=== PATIENT | female | born 1950 | race Caucasian/White ===

== ENCOUNTER 2016-08-13 09:57 | Outpatient (CLI) | payer OTHER | END 2016-08-13 09:58 | disposition home or self-care (01) | DX: Z12.31 Encounter for screening mammogram for malignant neoplasm of breast (principal) ==

== ENCOUNTER 2016-10-30 07:28 | Outpatient (CLI) | payer OTHER ==
[2016-10-30 08:03] LABS: BASOPHILS # (AUTO) 0.1 10^3/uL (0.0-0.1); BASOPHILS % (AUTO) 1.4 %; EOSINOPHILS # (AUTO) 0.2 10^3/uL (0.0-0.7); EOSINOPHILS % (AUTO) 3.8 %; HCT - HEMATOCRIT 38.6 % (37.0-47.0); LYMPHOCYTES # (AUTO) 1.9 10^3/uL (1.5-3.5); LYMPHOCYTES % (AUTO) 34.1 %; MEAN CORPUSCULAR HEMOGLOBIN 28.4 pg (27.0-31.0); MEAN CORPUSCULAR HGB CONC 33.6 g/dL (32.0-36.0); MEAN CORPUSCULAR VOLUME 84.7 fL (81.0-99.0); MEAN PLATELET VOLUME 7.2 fL (7.9-10.8); MONOCYTES # (AUTO) 0.4 10^3/uL (0.0-1.0); MONOCYTES % (AUTO) 7.4 %; NEUTROPHILS # (AUTO) 2.9 10^3/uL (1.5-6.6); NEUTROPHILS % (AUTO) 53.3 %; RED BLOOD COUNT 4.55 10^6/uL (4.20-5.40); RED CELL DISTRIBUTION WIDTH 12.8 % (12.0-15.0); UNCORRECTED WHITE BLOOD COUNT 5.5 x10^3/uL; WHITE BLOOD COUNT 5.5 x10^3/uL (4.8-10.8)
[2016-10-30 08:25] LABS: ALBUMIN/GLOBULIN RATIO 1.3 (1.0-2.2); BILIRUBIN,TOTAL 0.6 mg/dL (0.2-1.0); BUN - BLOOD UREA NITROGEN 12 mg/dL (6-20); CALCIUM 9.1 mg/dL (8.5-10.3); CARBON DIOXIDE - CO2 27 mmol/L (21-32); CHLORIDE 107 mmol/L (101-111); CHOLESTEROL 213 mg/dL; CREATININE 0.5 mg/dL (0.4-1.0); GFR - MDRD 124 (>89); GLUCOSE 98 mg/dL (70-100); HDL CHOLESTEROL 53 mg/dL; LDL/HDL RATIO 2.6 (<4.4); POTASSIUM 3.9 mmol/L (3.5-5.0); SODIUM 141 mmol/L (135-145); TOTAL PROTEIN 6.8 g/dL (6.7-8.2); TRIGLYCERIDES 119 mg/dL; VLDL CHOLESTEROL 24 mg/dL
== END 2016-10-30 07:29 | disposition home or self-care (01) ==
LOC: LAB 07:28
PROVIDERS: ATTEND Nurse Practitioner Family
DX: R52 Pain, unspecified (principal); R06.00 Dyspnea, unspecified; E78.5 Hyperlipidemia, unspecified; K21.9 Gastro-esophageal reflux disease without esophagitis
CPT/HCPCS: 36415; 80053; 80061; 82550; 85025

== ENCOUNTER 2017-01-29 13:35 | Outpatient (CLI) | payer OTHER, MEDICARE ==
--- NOTE | 2017-01-29 19:12 | CT Report ---
CT BRAIN WITHOUT CONTRAST: 01/29/2017 CLINICAL INDICATION: Trauma, headache. TECHNIQUE: Axial CT images of the brain were obtained without intravenous contrast. No previous CT is available for comparison. FINDINGS: The ventricles and sulci are normal in size, shape, and configuration. The basilar cister ns are patent. There is no evidence of hemorrhage, mass effect, or midline shift. The visualized or bital contents and paranasal sinuses are unremarkable. IMPRESSION: NORMAL CT OF THE BRAIN WITHOUT CONTRAST. In accordance with CT protocol optimization, one or more of the following dose reduction techniques w ere utilized for this exam: automated exposure control, adjustment of mA and/or KV based on patient size, or use of iterative reconstructive technique. JOB #: [id number] EXT JOB #:[id number]
--- NOTE | 2017-01-29 20:53 | CT Preliminary Report ---
Exam: CT Head W/O IMPRESSION: No acute intracranial abnormality. [facility] SITE ID: [id number]
== END 2017-01-29 13:36 | disposition home or self-care (01) ==
LOC: DI 13:35
PROVIDERS: ATTEND Physician Assistant
DX: R51 Headache (principal); H53.9 Unspecified visual disturbance; T14.90 Injury, unspecified
CPT/HCPCS: 70450

== ENCOUNTER 2017-02-17 11:17 | Outpatient (CLI) | payer OTHER ==
--- NOTE | 2017-02-17 13:04 | XRAY Report ---
COMPLETE CERVICAL SPINE: 02/17/2017 CLINICAL INDICATION: Neck pain. FINDINGS: AP, lateral, oblique, odontoid views of the cervical spine demonstrate normal height and a lignment of the vertebral bodies. Degenerative disc and facet disease is present, producing bilatera l osseous neural foraminal narrowing from C3-4 through C6-7, left worst than right. There is no evid ence of fracture or subluxation. The prevertebral soft tissues are unremarkable. IMPRESSION: MODERATE DEGENERATIVE CHANGES, WITH BILATERAL OSSEOUS NEURAL FORAMINAL ENCROACHMENT. JOB #: [id number] EXT JOB #:[id number]
== END 2017-02-17 11:18 | disposition home or self-care (01) ==
LOC: DI 11:17
PROVIDERS: ATTEND Nurse Practitioner Family
DX: M50.31 Other cervical disc degeneration, high cervical region (principal); M47.892 Other spondylosis, cervical region
CPT/HCPCS: 72050

== ENCOUNTER 2017-03-18 11:04 | Outpatient (CLI) | payer OTHER, MEDICARE | END 2017-03-18 11:05 | disposition home or self-care (01) | LOC: LAB 11:04 | PROVIDERS: ATTEND Physician Assistant | DX: E03.9 Hypothyroidism, unspecified (principal) | CPT/HCPCS: 36415; 84443 ==

== ENCOUNTER 2017-10-14 10:22 | Outpatient (CLI) | payer OTHER, MEDICARE ==
--- NOTE | 2017-10-15 15:14 | Mammography Report ---
DIGITAL SCREENING MAMMOGRAM: 10/14/2017 CLINICAL INDICATION: A 66-year-old for screening. COMPARISON: 07/2016, 07/2015, 06/2014, 06/2013, 06/2012, 06/2011, 05/2010. TECHNIQUE: Routine CC and MLO projections were obtained of the breasts. FINDINGS: Parenchymal tissue within the breasts is predominantly fatty replaced. There are no dominant masses, suspicious microcalcifications, or secondary signs of malignancy. In comparison to the previous studies, there are no significant changes. IMPRESSION: NO MAMMOGRAPHIC EVIDENCE OF MALIGNANCY. NO SIGNIFICANT INTERVAL CHANGES. RECOMMENDATION: Screening mammography is recommended annually. BIRADS CATEGORY 1 - NEGATIVE. STANDARD QUALIFYING STATEMENTS: 1. This examination was reviewed with the aid of Computed-Aided Detection (CAD). 2. A negative or benign imaging report should not delay biopsy if clinically suspicious findings are present. Consider surgical consultation if warranted. More than 5% of cancers are not identified by imaging. 3. Dense breasts may obscure an underlying neoplasm. TD: 10/15/2017 15:03
== END 2017-10-14 10:23 | disposition home or self-care (01) ==
LOC: DI 10:22
PROVIDERS: ATTEND Physician Assistant
DX: Z12.31 Encounter for screening mammogram for malignant neoplasm of breast (principal)
CPT/HCPCS: 77067

== ENCOUNTER 2017-12-02 08:17 | Outpatient (CLI) | payer MEDICARE, OTHER ==
[2017-12-02 08:52] LABS: ALBUMIN 3.7 g/dL (3.2-5.5); ALBUMIN/GLOBULIN RATIO 1.3 (1.0-2.2); BILIRUBIN,TOTAL 0.7 mg/dL (0.2-1.0); CALCIUM 8.8 mg/dL (8.5-10.3); CREATININE 0.5 mg/dL (0.4-1.0); TOTAL PROTEIN 6.6 g/dL (6.7-8.2)
== END 2017-12-02 08:18 | disposition home or self-care (01) ==
LOC: LAB 08:17
PROVIDERS: ATTEND Physician Assistant
DX: R03.0 Elevated blood-pressure reading, without diagnosis of hypertension (principal)
CPT/HCPCS: 36415; 80053

== ENCOUNTER 2018-01-12 11:31 | Outpatient (CLI) | payer MEDICARE, OTHER | END 2018-01-12 11:32 | disposition home or self-care (01) | LOC: SC 11:31 | PROVIDERS: ATTEND Internal Medicine Pulmonary Disease | DX: G47.30 Sleep apnea, unspecified (principal); G47.10 Hypersomnia, unspecified; R06.83 Snoring; G47.8 Other sleep disorders; E66.01 Morbid (severe) obesity due to excess calories; Z68.41 Body mass index [BMI] 40.0-44.9, adult | CPT/HCPCS: 99203; G0463; 99212 ==

== ENCOUNTER 2018-02-06 20:26 | Outpatient (CLI) | payer MEDICARE | END 2018-02-06 20:27 | disposition home or self-care (01) | LOC: SC 20:26 | PROVIDERS: ATTEND Internal Medicine Pulmonary Disease | DX: G47.33 Obstructive sleep apnea (adult) (pediatric) (principal); G47.61 Periodic limb movement disorder | CPT/HCPCS: 95810 ==

== ENCOUNTER 2018-02-23 13:03 | Outpatient (CLI) | payer MEDICARE | END 2018-02-23 13:04 | disposition home or self-care (01) | LOC: SC 13:03 | PROVIDERS: ATTEND Internal Medicine Pulmonary Disease | DX: G47.33 Obstructive sleep apnea (adult) (pediatric) (principal) | CPT/HCPCS: 99213; G0463; 99212 ==

== ENCOUNTER 2018-02-25 08:01 | Outpatient (CLI) | payer MEDICARE ==
[2018-02-25 08:26] LABS: BASOPHILS % (AUTO) 0.7 %; EOSINOPHILS # (AUTO) 0.1 10^3/uL (0.0-0.7); EOSINOPHILS % (AUTO) 2.6 %; HGB - HEMOGLOBIN 12.9 g/dL (12.0-16.0); LYMPHOCYTES # (AUTO) 1.9 10^3/uL (1.5-3.5); LYMPHOCYTES % (AUTO) 33.4 %; MEAN CORPUSCULAR HEMOGLOBIN 29.3 pg (27.0-31.0); MEAN CORPUSCULAR HGB CONC 33.8 g/dL (32.0-36.0); MEAN CORPUSCULAR VOLUME 86.6 fL (81.0-99.0); MONOCYTES # (AUTO) 0.4 10^3/uL (0.0-1.0); MONOCYTES % (AUTO) 6.7 %; NEUTROPHILS # (AUTO) 3.2 10^3/uL (1.5-6.6); NEUTROPHILS % (AUTO) 56.6 %; PLT - PLATELET COUNT 350 10^3/uL (130-450); RED CELL DISTRIBUTION WIDTH 12.6 % (12.0-15.0); WHITE BLOOD COUNT 5.7 x10^3/uL (4.8-10.8)
[2018-02-25 08:39] LABS: CALCIUM 8.6 mg/dL (8.5-10.3); CREATININE 0.5 mg/dL (0.4-1.0)
== END 2018-02-25 08:02 | disposition home or self-care (01) ==
LOC: LAB 08:01
PROVIDERS: ATTEND Orthopaedic Surgery
DX: Z01.812 Encounter for preprocedural laboratory examination (principal); Z01.818 Encounter for other preprocedural examination
CPT/HCPCS: 36415; 80048; 85025

== ENCOUNTER → 2018-02-26 | Outpatient (CLI) | payer MEDICARE | LOC: RT 08:30 | PROVIDERS: ATTEND Internal Medicine Cardiovascular Disease | DX: Z01.810 Encounter for preprocedural cardiovascular examination (principal) | CPT/HCPCS: 93005 ==

== ENCOUNTER 2018-04-06 10:57 | Outpatient (CLI) | payer MEDICARE | END 2018-04-06 10:58 | disposition home or self-care (01) | LOC: SC 10:57 | PROVIDERS: ATTEND Internal Medicine Pulmonary Disease | DX: G47.33 Obstructive sleep apnea (adult) (pediatric) (principal) | CPT/HCPCS: 99213; G0463; 99212 ==

== ENCOUNTER 2018-05-04 10:52 | Outpatient (CLI) | payer MEDICARE | END 2018-05-04 10:53 | disposition home or self-care (01) | LOC: SC 10:52 | PROVIDERS: ATTEND Internal Medicine Pulmonary Disease | DX: G47.33 Obstructive sleep apnea (adult) (pediatric) (principal) | CPT/HCPCS: 99213; G0463; 99212 ==

== ENCOUNTER 2018-07-09 10:12 | Outpatient (CLI) | payer MEDICARE | END 2018-07-09 10:13 | disposition home or self-care (01) | LOC: SC 10:12 | PROVIDERS: ATTEND Internal Medicine Pulmonary Disease | DX: G47.33 Obstructive sleep apnea (adult) (pediatric) (principal) | CPT/HCPCS: 99213; G0463; 99212 ==

== ENCOUNTER 2018-07-14 08:00 | Outpatient (CLI) | payer MEDICARE ==
[2018-07-14 08:43] LABS: BASOPHILS % (AUTO) 0.8 %; EOSINOPHILS # (AUTO) 0.1 10^3/uL (0.0-0.7); EOSINOPHILS % (AUTO) 2.7 %; HGB - HEMOGLOBIN 12.7 g/dL (12.0-16.0); LYMPHOCYTES # (AUTO) 1.7 10^3/uL (1.5-3.5); LYMPHOCYTES % (AUTO) 30.2 %; MEAN CORPUSCULAR HEMOGLOBIN 27.9 pg (27.0-31.0); MEAN CORPUSCULAR HGB CONC 32.9 g/dL (32.0-36.0); MEAN CORPUSCULAR VOLUME 84.8 fL (81.0-99.0); MEAN PLATELET VOLUME 7.2 fL (7.9-10.8); MONOCYTES # (AUTO) 0.4 10^3/uL (0.0-1.0); MONOCYTES % (AUTO) 7.5 %; NEUTROPHILS # (AUTO) 3.3 10^3/uL (1.5-6.6); NEUTROPHILS % (AUTO) 58.8 %; PLT - PLATELET COUNT 359 10^3/uL (130-450); RED BLOOD COUNT 4.57 10^6/uL (4.20-5.40); RED CELL DISTRIBUTION WIDTH 13.5 % (12.0-15.0); WHITE BLOOD COUNT 5.6 x10^3/uL (4.8-10.8)
[2018-07-14 09:01] LABS: CHOL/HDL RATIO 3.9 (<4.4); CHOLESTEROL 226 mg/dL; HDL CHOLESTEROL 58 mg/dL; LDL CHOLESTEROL,CALCULATED 148 mg/dL; LDL/HDL RATIO 2.6 (<4.4); VLDL CHOLESTEROL 20 mg/dL
== END 2018-07-14 08:01 | disposition home or self-care (01) ==
LOC: LAB 08:00
PROVIDERS: ATTEND Physician Assistant
DX: E78.2 Mixed hyperlipidemia (principal); K21.9 Gastro-esophageal reflux disease without esophagitis; E55.9 Vitamin D deficiency, unspecified
CPT/HCPCS: 36415; 80061; 82306; 83721; 85025

== ENCOUNTER 2018-12-14 07:26 | Outpatient (CLI) | payer MEDICARE ==
[2018-12-14 07:58] LABS: CHOL/HDL RATIO 3.6 (<4.4); CHOLESTEROL 226 mg/dL; HDL CHOLESTEROL 63 mg/dL; LDL CHOLESTEROL,CALCULATED 141 mg/dL; LDL/HDL RATIO 2.2 (<4.4); VLDL CHOLESTEROL 22 mg/dL
[2018-12-14 08:25] LABS: THYROID STIMULATING HORMONE 2.54 uIU/mL (0.34-5.60)
[2018-12-14 08:27] LABS: FREE T4 (FREE THYROXINE) 1.04 ng/dL (0.58-1.64)
== END 2018-12-14 07:27 | disposition home or self-care (01) ==
LOC: LAB 07:26
PROVIDERS: ATTEND Physician Assistant
DX: E03.4 Atrophy of thyroid (acquired) (principal); E78.2 Mixed hyperlipidemia
CPT/HCPCS: 36415; 80061; 83721; 84439; 84443

== ENCOUNTER 2020-01-20 09:15 | Outpatient (CLI) | payer MEDICARE ==
--- NOTE | 2020-01-21 09:17 | Mammography Report ---
BILATERAL DIGITAL SCREENING MAMMOGRAM 3D/2D: 01/20/2020 CLINICAL: Routine screening. Comparison is made to exams dated: 12/08/2018 mammogram, 10/14/2017 mammogram, 08/13/2016 mammogram, an d 08/03/2015 mammogram - [facility]. The tissue of both breasts is predominantly fa tty. No significant masses, calcifications, or other findings are seen in either breast. There has been no significant interval change. IMPRESSION: NEGATIVE There is no mammographic evidence of malignancy. A 1 year screening mammogram is recommended. This exam was interpreted at Station ID: [id number]. NOTE: For mammograms, a report in lay terms will be sent to the patient. Approximately 15% of breast malignancies will not be visualized mammographically. In the management of a palpable breast mass, a negative mammogram must not discourage biopsy of a clinically suspicious lesion. Electronically Signed By: Pantera Mckeon M.D. ar/patorad:01/20/2020 12:39:29 ACR BI-RADS Category 1: Negative 3341F PARENCHYMAL PATTERN: (F) - The breast(s) demonstrate(s) diffuse fatty replacement. BI-RADS CATEGORY: (1) - 1 RECOMMENDATION: (ANNUAL) - Recommend routine annual screening mammography. [id number] 1 year screening LATERALITY: (B)
== END 2020-01-20 09:16 | disposition home or self-care (01) ==
LOC: DI 09:15
PROVIDERS: ATTEND Nurse Practitioner Family
DX: Z12.31 Encounter for screening mammogram for malignant neoplasm of breast (principal)
CPT/HCPCS: 77063; 77067

== ENCOUNTER 2020-04-07 11:39 | Outpatient (CLI) | payer MEDICARE ==
[2020-04-07] MEDS ORDERED: IOVERSOL 320 50 ML VIAL ONE (11:51)
[2020-04-07] MEDS ORDERED: IOVERSOL 320 100 ML VIAL IVP ONE ×2 (11:51→13:12)
[2020-04-07] MEDS ORDERED: IOVERSOL 320 50 ML VIAL PO ONE (13:12)
--- NOTE | 2020-04-07 13:59 | CT Report ---
PROCEDURE: Abdomen/Pelvis W INDICATIONS: ABD PAIN CONTRAST: IV CONTRAST: Optiray 320 ml: 100 PO CONTRAST: Optiray 320 ml50 TECHNIQUE: After the administration of IV and oral contrast, 5 mm thick sections acquired from the diaphragms to the symphysis. 5 mm thick coronal and sagittal reformats were acquired. For radiation dose reducti on, the following was used: automated exposure control, adjustment of mA and/or kV according to orly ent size. COMPARISON: CT examination dated 07.26.13 FINDINGS: Image quality: Excellent. ABDOMEN: Lung bases: Lung bases are clear. Heart size is normal. Solid organs: Liver and spleen are normal in size and enhancement. Gallbladder is within normal gonzalez its Biliary system is non dilated. Pancreas enhances normally. No adrenal nodules. Kidneys demons trate normal size and enhancement, without hydronephrosis. Peritoneum and bowel: Small hiatal hernia. Bowel loops demonstrate normal wall thickness and caliber . . Diverticulosis of the descending and sigmoid colon. Normal appendix. No free fluid or air. Nodes and vessels: No retroperitoneal or mesenteric adenopathy by size criteria. Aorta and inferior vena cava are normal in size. Miscellaneous: No ventral hernias. PELVIS: Genitourinary: Bladder wall thickness is normal. 25 mm exophytic low-density focus protrudes anteri rhett from the uterine fundus. Miscellaneous: No inguinal hernias or adenopathy. Bones: No suspicious bony lesions. L3-L5 fusion has been performed. No vertebral body compression fr actures. IMPRESSION: 1. No acute process. 2. Normal appendix. 3. Small hiatal hernia. 4. Uterine fibroid. Reviewed by: Kerry Montez MD on 04/07/2020 12:57 PM [place] Approved by: Kerry Montez MD on 04/07/2020 12:57 PM [facility] Station ID: [id number]
== END 2020-04-07 11:40 | disposition home or self-care (01) ==
LOC: DI 11:39
PROVIDERS: ATTEND Nurse Practitioner Family
DX: K44.9 Diaphragmatic hernia without obstruction or gangrene (principal); D25.9 Leiomyoma of uterus, unspecified
CPT/HCPCS: 74177; Q9967

== ENCOUNTER 2020-04-09 08:01 | Emergency (ER) | payer MEDICARE ==
[2020-04-09 08:10] VITALS: BP 128/80
--- NOTE | 2020-04-09 08:12 | ED Physician Documentation ---
PD HPI SKIN - Stated complaint Stated Complaint: R GROIN RASH - History obtained from History obtained from: Patient - History of Present Illness Timing - onset: How many weeks ago (has had some pain right lower thoracic back for 1-2 weeks mildly. Increased the past week. Seen by PCP and had CT ordered to eval for stones/etc. This was normal 2 days ago. Started that day with rash that has increased the past 2 days.) Timing - duration: Weeks Timing - details: Gradual onset, Still present Location: Back (lower thoracic around to right abd.) Quality / character: Painful, Discolored (red), Vesicular Associated symptoms: No: Fever, Myalgias, N/V/D Contributing factors: No: Recent illness Similar symptoms before: Has not had sx before Review of Systems Constitutional: denies: Fever, Chills Nose: denies: Rhinorrhea / runny nose, Congestion Throat: denies: Sore throat Respiratory: denies: Cough GI: reports: Abdominal Pain. denies: Nausea, Vomiting, Diarrhea Skin: reports: Rash (just the past 2 days, increasing) Musculoskeletal: reports: Back pain PD PAST MEDICAL HISTORY - Past Medical History Cardiovascular: None Respiratory: None Neuro: None Endocrine/Autoimmune: None - Present Medications Home Medications: Ambulatory Orders Medication Instructions Recorded Confirmed Lidocaine Patch 5% [Lidoderm Patch] 1 patch TOP DAILY PRN #10 patch 04/09/20 Ondansetron Odt [Zofran] 4 mg TL Q6H PRN #15 tablet 04/09/20 Oxycodone HCl/Acetaminophen 1 each PO Q6H PRN #25 tablet 04/09/20 [Percocet 5-325 mg Tablet] Valacyclovir HCl [Valtrex] 1,000 mg PO TID #15 tablet 04/09/20 dexAMETHasone [Decadron] 4 mg PO DAILY #5 tablet 04/09/20 - Allergies Allergies/Adverse Reactions: Allergies Allergy/AdvReac Type Severity Reaction Status Date / Time No Known Drug Allergies Allergy Verified 04/09/20 08:04 PD ED PE NORMAL - Vitals Vital signs reviewed: Yes - General General: Alert and oriented X 3, Well developed/nourished, Other (appears in pain) - Cardiac Cardiac: RRR, No murmur - Respiratory Respiratory: Clear bilaterally - Abdomen Abdomen: Soft, Other (tender right abd in band distribution from lower thoracic around to right umbilical area. There is vesicular patchy rash in the area. It is very tender. ) - Derm Derm: Normal color, Warm and dry, Other (shingles rash T10 around to umbilicus area on right. ) - Neuro Neuro: Alert and oriented X 3, No motor deficit, Normal speech Results - Vitals Vitals: Vital Signs - 24 hr 04/09/20 08:05 Temperature 36.4 C L Heart Rate 79 Respiratory 18 Rate Blood Pressure 128/80 O2 Saturation 96 Oxygen O2 Source Room air Departure - Departure Disposition: 01 Home, Self Care Clinical Impression: Shingles outbreak Qualifiers: Herpes zoster complications: without complications Qualified Code(s): B02.9 - Zoster without complications Condition: Stable Record reviewed to determine appropriate education?: Yes Instructions: ED Shingles Follow-Up: Berna Hernandez PA [Primary Care Provider] - Prescriptions: dexAMETHasone [Decadron] 4 mg PO DAILY #5 tablet Lidocaine Patch 5% [Lidoderm Patch] 1 patch TOP DAILY PRN #10 patch PRN Reason: pain Oxycodone HCl/Acetaminophen [Percocet 5-325 mg Tablet] 1 each PO Q6H PRN #25 tablet PRN Reason: pain Valacyclovir HCl [Valtrex] 1,000 mg PO TID #15 tablet Ondansetron Odt [Zofran] 4 mg TL Q6H PRN #15 tablet PRN Reason: Nausea / Vomiting Comments: Continue your usual gabapentin 600 mg and add another 300 mg separate time during the day. Hellen acyclovir or antiviral as directed 3 times a day for 5 days. Decadron steroid daily for 5 days as well. Tylenol or ibuprofen if needed for pain and be careful of stomach irritation as the NSAIDs along with the steroids will compound the ability for stomach irritation. Add oxycodone if needed for pain. This should not irritate your stomach but sometimes will create some nausea. Add ondansetron if needed for nausea. You can try to treat the pain topically as well with the cega-xhv-kqalztl benzocaine or also the lidocaine patches. Recheck if having problems with the medications or not tolerating well. Follow- up with your primary care. Discharge Date/Time: 04/09/20 08:53
[2020-04-09] MEDS ORDERED: ACETAMINOPHEN 325 MG TABLET PO STA (08:30)
[2020-04-09] MEDS ORDERED: oxyCODONE 5 MG TABLET PO STA (08:30)
[2020-04-09] MEDS ORDERED: CHERRY SYRUP 10 ML UDC PO ONE (08:30)
[2020-04-09] MEDS ORDERED: ACYCLOVIR 200 MG CAPSULE PO STA (08:30)
[2020-04-09] MEDS ORDERED: DEXAMETHASONE 10 MG/ML VIAL PO STA (08:30)
== END 2020-04-09 08:53 | disposition home or self-care (01) ==
LOC: ED 08:01
DX: B02.9 Zoster without complications (principal)
CPT/HCPCS: 99284; A9270

== ENCOUNTER 2020-07-19 07:41 | Outpatient (CLI) | payer MEDICARE | END 2020-07-19 07:42 | disposition home or self-care (01) | LOC: DI 07:41 | PROVIDERS: ATTEND Nurse Practitioner Family | DX: I10 Essential (primary) hypertension (principal); E66.01 Morbid (severe) obesity due to excess calories; E78.00 Pure hypercholesterolemia, unspecified; Z78.0 Asymptomatic menopausal state; Z82.49 Family history of ischemic heart disease and other diseases of the circulatory system | CPT/HCPCS: 93016; 93018 ==

== ENCOUNTER 2021-02-12 13:27 | Outpatient (CLI) | payer MEDICARE ==
--- NOTE | 2021-02-12 14:03 | SLEEP CARE CONSULTATION ---
Information from patient questionnaire entered by Anabel Levi. I have reviewed and concur with the information entered by Anabel Levi. This document represents the service I personally performed and the decisions made by me, Darin Zuniga MD, [facility]. History of Present Illness Service Date and Time: 02/12/2021 1327 Previous diagnosis: Moderate, Obstructive Sleep Apnea-Hypopnea Syndrome AHI: 15.1 Reason for follow up: annual Equipment type: CPAP [facility] Prior sleep studies: Yes Year and Where: [address] [facility] additional information: Ms. Dhaliwal returned today for follow up of nasal CPAP therapy. She was diagnosed to have moderate obstructive sleep apnea-hypopnea syndrome. The patient went to [facility] for the equipment and was fitted with the [employer] nasal pillows.. She reports using the device almost nightly and all through the night. The compliance report shows usage in 76 nights out of the past 95 nights, averaging 6.1 hours a night. The > 4 hour compliance rate for the past 30 days is 63%. She complained of no particular problem with the device such as soreness on the face, dry nose, epistaxis, nasal congestion or headache. She thinks that the pressure of 6-12 cmH2O is occasionally too high during the night. On the CPAP therapy she notices improvement in her sleep quality, and that she wakes up feeling fresher in the morning and more awake/alert during the day. The [place] Sleepiness Scale score 11. Her notices no snore at all. The average residual AHI is 3.6 (was 4.6); and average time in large leak per day is 14 minutes. The 90th percentile pressure is 9.5 cmH2O. Sleep Study - Results [facility]: Yes [facility] - Data Reviewed with Patient Average duration of nightly device use: 6 hours 5 minutes Compliance rate %: 65.3 (for 95 days, 56.7% for 180 days) Current pressure setting (cmH2O): 6-12 Humidity settin Heated hose settin Average residual AHI: 3.6 Average large leak: 14 minutes 43 seconds Subjective Patient concerns: reports: mask leak noise, other (Device recall) Initial [place] Sleepiness Scale score: 14 Current [place] Sleepiness Scale score: 11 Allergies and Home Medications Drug allergies reviewed: Yes Home medication list reviewed: Yes Review of Systems Review of systems same as previous: Yes Physical Exam Heart Rate: 70 O2 Saturation: 96 Height: 5 ft 2 in Weight: 240 lb Body Mass Index: 43.9 BMI Classification: Morbidly Obese Impression and Plan IMPRESSION: 1. Obstructive Sleep Apnea-Hypopnea Syndrome, moderate, with the patient doing fairly well on nasal CPAP therapy. She has decent compliance and significant clinical improvement. The current pressure now appears effective and comfortable. Overall, she is very satisfied with treatment and plans to continue with it long-term. No further adjustment is necessary today (I offered to lower the pressure a little but she declined). PLAN: 1. Continue with autoCPAP set at 6 - 12 cmH2O. 2. Try to lose weight 3. Increase the heated humidifier setting if dry. 4. Return in one year for follow up or earlier if there is any problem. Follow up with Sleep Care in: 1 year Follow up recommended for: Weight management Visit Type: In Office Time Spent with Patient (minutes): 15 Provider Statement: I spent 100% of the Face to Face Visit with the patient with greater than 50% spent counseling the patient and coordination of care.
== END 2021-02-12 13:28 | disposition home or self-care (01) ==
LOC: SC 13:27
PROVIDERS: ATTEND Internal Medicine Pulmonary Disease
DX: G47.33 Obstructive sleep apnea (adult) (pediatric) (principal); E66.01 Morbid (severe) obesity due to excess calories; Z68.41 Body mass index [BMI] 40.0-44.9, adult
CPT/HCPCS: 99212; G0463

== ENCOUNTER 2021-02-16 14:05 | Outpatient (CLI) | payer MEDICARE ==
--- NOTE | 2021-02-16 15:57 | DEXA Report ---
PROCEDURE: Dexa Spine and/or Hip INDICATIONS: POST MENOPAUSAL TECHNIQUE: Dual energy x-ray absorptiometry (DXA) was performed on a [employer] System. Regions measur ed are the AP Spine, femoral neck, and if needed forearm. COMPARISON: None. FINDINGS: Lumbar Spine: Bone Mineral Density 1.396 g/cm/cm,T score 1.9, normal Left Hip: Bone Mineral Density 0.980 g/cm/cm,T score -0.2, normal Left Femoral Neck: Bone Mineral Density 0.853 g/cm/cm, T score -1.3, osteopenia (T score greater or equal to -1.0: NORMAL) (T score from -1.1 to -2.4: OSTEOPENIA) (T score less than or equal to -2.5 to: OSTEOPOROSIS) Impression: Normal bone mineral density. Patients with diagnosis of osteoporosis or osteopenia should have regular bone mineral density assess ment. For those eligible for Medicare, routine testing is allowed once every 2 years. Testing frequ ency can be increased for patients who have rapidly progressing disease or for those who are receivin g medical therapy to restore bone mass. Reviewed by: Garfield Samuels on 02/16/2021 3:56 PM PDT Approved by: Garfield Samuels on 02/16/2021 3:56 PM PDT Station ID: [id number]
== END 2021-02-16 14:06 | disposition home or self-care (01) ==
LOC: DI 14:05
PROVIDERS: ATTEND Nurse Practitioner Family
DX: Z78.0 Asymptomatic menopausal state (principal); M85.88 Other specified disorders of bone density and structure, other site

== ENCOUNTER 2021-02-16 14:06 | Outpatient (CLI) | payer MEDICARE ==
--- NOTE | 2021-02-19 10:19 | Mammography Report ---
BILATERAL DIGITAL SCREENING MAMMOGRAM 3D/2D: 02/16/2021 CLINICAL: Routine screening. Comparison is made to exams dated: 01/20/2020 mammogram, 12/08/2018 mammogram, 10/14/2017 mammogram, 07/18 mammogram, 08/03/2015 mammogram, and 07/14/2014 mammogram - [facility]. The t issue of both breasts is predominantly fatty. No significant masses, calcifications, or other findings are seen in either breast. There has been no significant interval change. IMPRESSION: NEGATIVE There is no mammographic evidence of malignancy. A 1 year screening mammogram is recommended. This exam was interpreted at Station ID: [id number]. NOTE: For mammograms, a report in lay terms will be sent to the patient. Approximately 15% of breast malignancies will not be visualized mammographically. In the management of a palpable breast mass, a negative mammogram must not discourage biopsy of a clinically suspicious lesion. Electronically Signed By: Eddie Casanova M.D. atarlet/[email or web address]:02/16/2021 16:55:41 ACR BI-RADS Category 1: Negative 3341F PARENCHYMAL PATTERN: (F) - The breast(s) demonstrate(s) diffuse fatty replacement. BI-RADS CATEGORY: (1) - 1 RECOMMENDATION: (ANNUAL) - Recommend routine annual screening mammography. [id number] 1 year screening LATERALITY: (B)
== END 2021-02-16 14:07 | disposition home or self-care (01) ==
LOC: DI 14:06
PROVIDERS: ATTEND Nurse Practitioner Family
DX: Z12.31 Encounter for screening mammogram for malignant neoplasm of breast (principal)

== ENCOUNTER 2021-02-27 12:45 | Outpatient (CLI) | payer MEDICARE ==
[2021-02-27] MEDS ORDERED: GADOBUTROL 7.5 MMOL/7.5 ML VIAL ONE (13:03)
[2021-02-27] MEDS ORDERED: GADOBUTROL 7.5 MMOL/7.5 ML VIAL IVP ONE (16:18)
--- NOTE | 2021-02-27 17:00 | MRI Report ---
PROCEDURE: Lumbar Spine W/WO INDICATIONS: LUMBAR RADICULOPATHY CONTRAST: IV CONTRAST: Gadavist ml: 10 TECHNIQUE: Noncontrast sagittal T1 spin echo and T2 fast spin echo, sagittal STIR, axial T1 and T2 fast spin ech o through the lumbar spine. In cases with scoliosis, additional coronal T2 fast spin echo may be per formed. After the administration of contrast, sagittal and axial T1 spin echo with fat saturation th rough the lumbar spine. COMPARISON: None. FINDINGS: Image quality: Excellent. Alignment and curvature: There is mild L4-L5 anterolisthesis. There is trace L1-L2 and L2-L3 retroli sthesis. Bones: Postsurgical changes compatible with L3-L5 PLIF. Mild reactive endplate changes noted adjacent to the T12-L1, L1-L2, L2-L3, L3-L4, L4-L5 and L5-S1 discs. No acute vertebral body compression fract ures. No suspicious marrow enhancement. Spinal cord: Conus medullaris terminates at the L1-2 disc level. Visualized spinal cord demonstrate s normal signal, without suspicious enhancement. Paraspinous soft tissues: No paravertebral masses or abnormal enhancement. T12-L1: Loss of disc signal. Moderate, diffuse disc bulge. Mild narrowing of the central canal. No n eural foraminal narrowing. No neural compression. L1-L2: Loss of disc signal. Mild, diffuse disc bulge. No central stenosis. Mild right neural fernando inal narrowing. No neural compression. L2-L3: Loss of disc signal. Mild, diffuse disc bulge. Moderate bilateral facet hypertrophy. Mild n arrowing of the central canal. Severe bilateral neural foraminal narrowing with compression of the ex iting L2 nerve roots. L3-L4: Status post fusion. Loss of disc signal. Moderate bilateral facet hypertrophy. Mild narrowin g of the central canal. Moderate right neural foraminal narrowing. No neural compression. L4-L5: Status post fusion. Moderate bilateral facet hypertrophy. No central stenosis. Mild bilatera l neural foraminal narrowing. No neural compression. L5-S1: Loss of disc signal. Mild, diffuse disc bulge. Mild bilateral facet hypertrophy. No central stenosis. Moderate right and severe left neural foraminal narrowing with compression of the exiting l eft L5 nerve root. IMPRESSION: 1. Status post L3-L5 PLIF. 2. Multilevel degenerative disc disease. 3. Multilevel facet arthropathy. 4. No severe central canal narrowing. 5. Severe bilateral L2-L3 neural foraminal narrowing with compression of the exiting L2 nerve roots. Severe left L5-S1 neural foraminal narrowing with compression of the exiting left L5 nerve root. Reviewed by: Ramonita Bell MD, PhD on 02/27/2021 4:59 PM PDT Approved by: Ramonita Bell MD, PhD on 02/27/2021 4:59 PM PDT Station ID: [id number]
== END 2021-02-27 12:46 | disposition home or self-care (01) ==
LOC: DI 12:45
PROVIDERS: ATTEND Nurse Practitioner Family
DX: M51.16 Intervertebral disc disorders with radiculopathy, lumbar region (principal)
CPT/HCPCS: 72158; A9585; 80048

== ENCOUNTER 2021-08-08 08:51 | Outpatient (CLI) | payer MEDICARE | END 2021-08-08 08:52 | disposition home or self-care (01) | LOC: NS 08:51 | PROVIDERS: ATTEND Internal Medicine | DX: Z71.3 Dietary counseling and surveillance (principal); E66.01 Morbid (severe) obesity due to excess calories; E78.00 Pure hypercholesterolemia, unspecified; Z68.38 Body mass index [BMI] 38.0-38.9, adult | CPT/HCPCS: 97802 ==

== ENCOUNTER 2022-03-11 10:01 | Outpatient (CLI) | payer MEDICARE ==
[2022-03-11 10:43] VITALS: BP 128/78
--- NOTE | 2022-03-11 10:43 | SLEEP CARE CONSULTATION ---
Information from patient questionnaire entered by Yelena Sutherland. I have reviewed and concur with the information entered by Yelena Sutherland. This document represents the service I personally performed and the decisions made by me, Darin Zuniga MD, [facility]. History of Present Illness Service Date and Time: 03/11/2022 1001 Previous diagnosis: Moderate, Obstructive Sleep Apnea-Hypopnea Syndrome AHI: 15.1 Reason for follow up: annual (LAST SEEN 01/2021) Equipment type: CPAP (DREAMSTATION) Equipment obtained from: [employer] [facility]: [facility] additional information: Ms. Dhaliwal returned today for an annual follow up of nasal CPAP therapy. She was diagnosed to have moderate obstructive sleep apnea-hypopnea syndrome. The patient went to [facility] for the equipment and was fitted with the [employer] DreamWear nasal pillows. She reports using the device almost nightly and all through the night. The compliance report shows usage in 28 nights out of the past 30 nights, averaging 5.8 hours a night. The > 4 hour compliance rate for the past 30 days is 70%. She complained of no particular problem with the device such as soreness on the face, dry nose, epistaxis, nasal congestion or headache. She thinks that the pressure of 6-12 cmH2O is occasionally too high during the night. On the CPAP therapy she notices improvement in her sleep quality, and that she wakes up feeling fresher in the morning and more awake/alert during the day. The [place] Sleepiness Scale score 11. Her notices no snore at all. The average residual AHI is 2.8 (was 4.6); and average time in large leak per day is 6 seconds. The 90th percentile pressure is 8.3 cmH2O. Sleep Study - Results Prior [facility]: Yes [facility] Compliance Data - Data Reviewed with Patient Average duration of nightly device use: 6HRS, 21MIN, 4SEC Compliance rate %: 56.1 (05/02/2021-10/28/2021) Current pressure setting (cmH2O): 6-12 Average residual AHI: 3.2 Subjective Initial [place] Sleepiness Scale score: 14 Current [place] Sleepiness Scale score: 4 (02/19/2022) Allergies and Home Medications Drug allergies reviewed: Yes Home medication list reviewed: Yes Allergy and home medication list: Allergies No Known Drug Allergies Allergy (Verified 04/09/20 08:04) Review of Systems Review of systems same as previous: Yes Physical Exam Vital signs obtained and entered by: YELENA Conde MA Blood Pressure: 128/78 (left arm) Cuff size: long Heart Rate: 72 O2 Saturation: 97 Height: 5 ft 2 in Weight: 233 lb 6.4 oz Body Mass Index: 42.7 BMI Classification: Morbidly Obese Impression and Plan IMPRESSION: 1. Obstructive Sleep Apnea-Hypopnea Syndrome, moderate (AHI was 15.1 in 2018), with the patient continuing to do well on nasal CPAP therapy. She has good compliance and significant clinical improvement. The current pressure now appears effective and comfortable. Overall, she is very satisfied with treatment and plans to continue with it long-term. No further adjustment is necessary today (I offered to lower the pressure a little but she declined). PLAN: 1. Continue with autoCPAP set at 6 - 12 cmH2O. 2. Try to lose weight 3. Wait for a replacement machine from [employer]. 4. Return in one year for follow up or earlier if there is any problem. She will be eligible for a new machine next year. Counseling Topics: Weight control Follow up with Sleep Care in: 1 year Follow up recommended for: Weight management Visit Type: In Office Time Spent with Patient (minutes): 20 Provider Statement: I spent 100% of the Face to Face Visit with the patient with greater than 50% spent counseling the patient and coordination of care.
== END 2022-03-11 10:02 | disposition home or self-care (01) ==
LOC: SC 10:01
PROVIDERS: ATTEND Internal Medicine Pulmonary Disease
DX: G47.33 Obstructive sleep apnea (adult) (pediatric) (principal); E66.01 Morbid (severe) obesity due to excess calories; Z68.41 Body mass index [BMI] 40.0-44.9, adult
CPT/HCPCS: 99213; G0463; 99212

== ENCOUNTER 2022-06-19 13:57 | Outpatient (CLI) | payer MEDICARE ==
--- NOTE | 2022-06-20 12:42 | Mammography Report ---
BILATERAL DIGITAL SCREENING MAMMOGRAM 3D/2D: 06/19/2022 CLINICAL: Routine screening. Comparison is made to exams dated: 02/16/2021 mammogram, 01/20/2020 mammogram, 12/08/2018 mammogram, 09/17 mammogram, and 08/13/2016 mammogram - [facility]. Both breasts are almost entirely fatty (category a/<25% glandular tissue). No significant masses, calcifications, or other findings are seen in either breast. There has been no significant interval change. IMPRESSION: NEGATIVE There is no mammographic evidence of malignancy. A 1 year screening mammogram is recommended. Based on the Tyrer Cuzick model (a risk assessment model) the patients lifetime risk is 1.9% and her 10 year risk is 1.2%. According to the ACR, ACS, and NCCN guidelines, an annual breast MRI exam afia g with mammogram is recommended if the patients lifetime risk is 20% or greater. This exam was interpreted at Station ID: [id number]. NOTE: For mammograms, a report in lay terms will be sent to the patient. Approximately 15% of breast malignancies will not be visualized mammographically. In the management of a palpable breast mass, a negative mammogram must not discourage biopsy of a clinically suspicious lesion. Electronically Signed By: Eddie burch/[email or web address]:06/19/2022 17:44:44 ACR BI-RADS Category 1: Negative 3341F PARENCHYMAL PATTERN: (F) - The breast(s) demonstrate(s) diffuse fatty replacement. BI-RADS CATEGORY: (1) - 1 RECOMMENDATION: (ANNUAL) - Recommend routine annual screening mammography. [id number] 1 year screening LATERALITY: (B)
== END 2022-06-19 13:58 | disposition home or self-care (01) ==
LOC: DI 13:57
PROVIDERS: ATTEND Nurse Practitioner Family
DX: Z12.31 Encounter for screening mammogram for malignant neoplasm of breast (principal)

== ENCOUNTER 2022-12-23 14:06 | Outpatient (CLI) | payer MEDICARE ==
--- NOTE | 2022-12-23 14:37 | SLEEP CARE CONSULTATION ---
Information from patient questionnaire entered by Yelena Sutherland. I have reviewed and concur with the information entered by Yelena Sutherland. This document represents the service I personally performed and the decisions made by me, Darin Zuniga MD, [facility]. History of Present Illness Service Date and Time: 12/23/2022 1406 Previous diagnosis: Moderate, Obstructive Sleep Apnea-Hypopnea Syndrome AHI: 15.1 Reason for follow up: other (10 MONTH F/U ) Equipment type: CPAP (DREAMSTATION NO DATA MACHINE LOST) Equipment obtained from: [facility]: [facility] additional information: Ms. Dhaliwal returned today for an annual follow up of nasal CPAP therapy. She was diagnosed to have moderate obstructive sleep apnea-hypopnea syndrome. The patient gets her supplies through [facility]. She wears the Respironics DreamWear nasal pillows. She used the device almost nightly and all through the night [place] She complained of no particular problem with the device such as soreness on the face, dry nose, epistaxis, nasal congestion or headache. She thinks that the pressure of 6-12 cmH2O is occasionally too high during the night. On the CPAP therapy she noticed improvement in her sleep quality, and that she wakes up feeling fresher in the morning and more awake/alert during the day. Sleep Study - Results Prior [facility] studies: Yes [facility] Subjective Initial Lawrence Sleepiness Scale score: 14 Current Lawrence Sleepiness Scale score: 5 (12/23/22) Allergies and Home Medications Drug allergies reviewed: Yes Home medication list reviewed: Yes Allergy and home medication list: Allergies No Known Drug Allergies Allergy (Verified 12/20/22 10:38) Review of Systems Review of systems same as previous: Yes Physical Exam Vital signs obtained and entered by: YELENA Conde MA Blood Pressure: 130/80 (LEFT ARM) Cuff size: long Heart Rate: 70 O2 Saturation: 98 Height: 5 ft 2 in Weight: 232 lb 3.2 oz Body Mass Index: 42.5 BMI Classification: Morbidly Obese Impression and Plan IMPRESSION: 1. Obstructive Sleep Apnea-Hypopnea Syndrome, moderate (AHI was 15.1 in 2018), with the patient currently not being treated because she lost her machine. The machine is a Jadiel Respironics DreamStation 2a replacement to her DreamStation 1. I will order her a new one and make it a ResMed AirSense 11 set at the same pressure of 6 12 cmH2O. PLAN: 1. Prescription made for an autoCPAP, heated humidifier, and related supplies. 2. Try to lose weight 3. Return in one year for follow up or earlier if there is any problem. Counseling Topics: Weight loss health impact Follow up with Sleep Care in: 1 year Visit Type: In Office Time Spent with Patient (minutes): 15 Provider Statement: I spent 100% of the Face to Face Visit with the patient with greater than 50% spent counseling the patient and coordination of care.
[2022-12-23 14:46] VITALS: BP 130/80
== END 2022-12-23 14:07 | disposition home or self-care (01) ==
LOC: SC 14:06
PROVIDERS: ATTEND Internal Medicine Pulmonary Disease
DX: G47.33 Obstructive sleep apnea (adult) (pediatric) (principal); E66.01 Morbid (severe) obesity due to excess calories; Z68.41 Body mass index [BMI] 40.0-44.9, adult
CPT/HCPCS: 99212; G0463

== ENCOUNTER 2023-04-25 10:15 | Outpatient (CLI) | payer MEDICARE ==
[2023-04-25 10:40] LABS: ALBUMIN 4.3 g/dL (3.2-5.5); ALBUMIN/GLOBULIN RATIO 1.5 (1.0-2.2); ALKALINE PHOSPHATASE 76 IU/L (42-121); ALT ALANINE AMINOTRANSFERASE 20 IU/L (10-60); AST ASPARTATE AMINOTRANSFERASE 18 IU/L (10-42); BILIRUBIN,TOTAL 0.5 mg/dL (0.2-1.0); BUN - BLOOD UREA NITROGEN 12 mg/dL (6-20); CALCIUM 9.8 mg/dL (8.5-10.3); CARBON DIOXIDE - CO2 30 mmol/L (21-32); CHLORIDE 106 mmol/L (101-111); CHOL/HDL RATIO 2.8 (<4.4); CHOLESTEROL 149 mg/dL; CREATININE 0.5 mg/dL (0.6-1.3); GFR - MDRD 122 (>89); GLUCOSE 101 mg/dL (74-104); HDL CHOLESTEROL 53 mg/dL; LDL CHOLESTEROL,CALCULATED 75 mg/dL; LDL/HDL RATIO 1.4 (<4.4); POTASSIUM 4.4 mmol/L (3.5-4.5); SODIUM 143 mmol/L (135-145); TOTAL PROTEIN 7.1 g/dL (6.4-8.9); TRIGLYCERIDES 103 mg/dL (48-352); VLDL CHOLESTEROL 21 mg/dL
[2023-04-25 10:55] LABS: THYROID STIMULATING HORMONE 1.46 uIU/mL (0.34-5.60)
== END 2023-04-25 10:16 | disposition home or self-care (01) ==
LOC: LAB 10:15
PROVIDERS: ATTEND Physician Assistant
DX: E78.2 Mixed hyperlipidemia (principal); E03.9 Hypothyroidism, unspecified
CPT/HCPCS: 36415; 80053; 80061; 83721; 84443

== ENCOUNTER 2023-09-02 10:32 | Outpatient (CLI) | payer MEDICARE ==
--- NOTE | 2023-09-03 10:52 | Mammography Report ---
BILATERAL DIGITAL SCREENING MAMMOGRAM 3D/2D: 09/02/2023 CLINICAL: Routine screening. Comparison is made to exams dated: 06/19/2022 mammogram, 02/16/2021 mammogram, 01/20/2020 mammogram, 12/08 mammogram, 10/14/2017 mammogram, and 08/13/2016 mammogram - [facility]. Both breasts are almost entirely fatty (category a/<25% glandular tissue). No significant masses, calcifications, or other findings are seen in either breast. There has been no significant interval change. IMPRESSION: NEGATIVE There is no mammographic evidence of malignancy. A 1 year screening mammogram is recommended. Based on the Tyrer Cuzick model (a risk assessment model) the patient's lifetime risk is 1.8% and her 10 year risk is 1.2%. According to the ACR, ACS, and NCCN guidelines, an annual breast MRI exam afia g with mammogram is recommended if the patient's lifetime risk is 20% or greater. This exam was interpreted at Station ID: [id number]. NOTE: For mammograms, a report in lay terms will be sent to the patient. Approximately 15% of breast malignancies will not be visualized mammographically. In the management of a palpable breast mass, a negative mammogram must not discourage biopsy of a clinically suspicious lesion. Electronically Signed By: Anabel brunson/[email or web address]:09/02/2023 16:46:02 letter sent: No_Letter ACR BI-RADS Category 1: Negative 3341F PARENCHYMAL PATTERN: (F) - The breast(s) demonstrate(s) diffuse fatty replacement. BI-RADS CATEGORY: (1) - 1 RECOMMENDATION: (ANNUAL) - Recommend routine annual screening mammography. [id number] 1 year screening LATERALITY: (B)
== END 2023-09-02 10:33 | disposition home or self-care (01) ==
LOC: DI 10:32
PROVIDERS: ATTEND Registered Nurse
DX: Z12.31 Encounter for screening mammogram for malignant neoplasm of breast (principal)